=== PATIENT | female | born 1980 | race Caucasian/White ===

== ENCOUNTER 2020-04-18 10:59 | Emergency (ER) | payer OTHER ==
[2020-04-18 11:18] VITALS: BP 131/79
[2020-04-18] MEDS ORDERED: DEXAMETHASONE 10 MG/ML VIAL PO STA (11:33)
[2020-04-18] MEDS ORDERED: CHERRY SYRUP 10 ML UDC PO ONE (11:33)
--- NOTE | 2020-04-18 11:36 | ED Physician Documentation ---
PD HPI HEENT - Stated complaint Stated Complaint: EAR PX/RINGING - Chief complaint Chief Complaint: Heent - History obtained from History obtained from: Patient - History of Present Illness Timing - onset: How many days ago (2) Timing - duration: Days (2) Timing - details: Gradual onset, Still present Location: Left ear Improves: Medication Associated symptoms: Congestion, Rhinorrhea, Headache. No: Cough Similar symptoms before: Diagnosis (OM) Recently seen: Not recently seen - Additional information Additional information: 39-year-old female with a prior history of otitis media has developed signs and symptoms again of otitis. She states that she has had some muffled hearing and pain in the left ear as well as nasal congestion that is been present for several days she has not developed a cough or fever. She does have some drainage down the back of her throat. Review of Systems Constitutional: denies: Fever Eyes: denies: Decreased vision Ears: reports: Ear pain, Tinnitus/ringing. denies: Drainage/discharge Nose: reports: Rhinorrhea / runny nose, Congestion Throat: denies: Sore throat Cardiac: denies: Chest pain / pressure, Palpitations Respiratory: denies: Dyspnea, Cough GI: denies: Vomiting PD PAST MEDICAL HISTORY - Past Medical History Past Medical History: No - Past Surgical History Past Surgical History: No - Present Medications Home Medications: Ambulatory Orders Medication Instructions Recorded Confirmed Amox/Clav 875/125 [Augmentin] 1 each PO Q12H #20 tablet 04/18/20 - Allergies Allergies/Adverse Reactions: Allergies Allergy/AdvReac Type Severity Reaction Status Date / Time morphine Allergy Hives Verified 04/18/20 11:18 - Social History Does the pt smoke?: No Smoking Status: Current every day smoker Does the pt drink ETOH?: No Does the pt have substance abuse?: No - Immunizations Immunizations are current?: Yes PD ED PE NORMAL - Vitals Vital signs reviewed: Yes (hypertensive) - General General: Alert and oriented X 3, No acute distress, Well developed/nourished - HEENT HEENT: Atraumatic, PERRL, EOMI, Other (There is marked inflamation to the left TM with distortion of the landmarks. The right is only flush and the pharynx is with 2+ tonsils smooth. 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 She is administered dexamethasone 10 mg orally we will place her on some Augmentin and expect her to improve rapidly. Departure - Departure Disposition: 01 Home, Self Care Clinical Impression: Otitis media Qualifiers: Otitis media type: suppurative Chronicity: acute Laterality: left Recurrence: not specified as recurrent Spontaneous tympanic membrane rupture: without spontaneous rupture Qualified Code(s): H66.002 - Acute suppurative otitis media without spontaneous rupture of ear drum, left ear Condition: Stable Instructions: ED Otitis Media Acute Adult Follow-Up: Janette Daniels PA [Primary Care Provider] - Prescriptions: Amox/Clav 875/125 [Augmentin] 1 each PO Q12H #20 tablet
== END 2020-04-18 11:59 | disposition home or self-care (01) ==
LOC: ED 10:59
DX: H66.002 Acute suppurative otitis media without spontaneous rupture of ear drum, left ear (principal); F17.200 Nicotine dependence, unspecified, uncomplicated
CPT/HCPCS: 99282; 99284; A9270

== ENCOUNTER 2020-08-02 04:14 | Inpatient (IN) | payer OTHER ==
--- OUTSIDE RECORDS SUMMARY | 2020-08-02 04:29 | EXTERNAL MEDICAL SUMMARY RPT | Continuity of Care Document ---
:1980 Demographics Phone Unavailable Preferred Language Unknown Marital Status Unknown Sabianist Affiliation Unknown Race Unknown Ethnic Group Unknown Author Organization [place] Address [address] [phone] Phone Social History date description facility [phone]
--- NOTE | 2020-08-02 04:41 | ED Physician Documentation ---
PD HPI DYSPNEA - Stated complaint Stated Complaint: SOA - Chief complaint Chief Complaint: Resp - History obtained from History obtained from: Patient - History of Present Illness Timing - onset: Enter time (829), Today Timing - onset during: Rest Timing - duration: Hours Timing - details: Gradual onset, Still present Inciting event(s): Other (stress at home) Improved by: Rest Worsened by: Exertion, Coughing Associated symptoms: Chest pain / discomfort, Anxiety. No: Fever, Cough, Hemoptysis, Wheezing, Palpitations, Diaphoresis, Bilateral edema, Unilateral edema Similar symptoms before: Diagnosis (catamenial pneumothorax) Recently seen: Not recently seen - Additional information Additional information: 39-year-old female with a history of catamnial pneumothorax Has began to develop some itching in the right hemithorax several days ago and she is now recognizes his prodromal symptoms to a pneumothorax. She has subsequently developed pain which is progressively worsened and she is having shortness of breath. As the day is gone on she has developed worsening shortness of breath and she has come into the emergency department this morning recognizing this is likely another pneumothorax. She has had one pneumothorax treated with chest tube 10 years ago and she has subsequently had symptoms periodically and had repeat chest x-rays but never developed another pneumothorax. 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 - Allergies Allergies/Adverse Reactions: Allergies Allergy/AdvReac Type Severity Reaction Status Date / Time morphine Allergy Hives Verified 08/02/20 04:25 - Social History Does the pt smoke?: No Smoking Status: Never smoker Does the pt drink ETOH?: No Does the pt have substance abuse?: No - Immunizations Immunizations are current?: Yes PD ED PE NORMAL - Vitals Vital signs reviewed: Yes (tachy and hypertensive ) - General General: Alert and oriented X 3, No acute distress, Well developed/nourished - HEENT HEENT: Atraumatic, PERRL, EOMI - Neck Neck: Supple, no meningeal sign, No bony TTP - Cardiac Cardiac: No murmur, Other (tachy ) - Respiratory Respiratory: No respiratory distress, Other (reduced lung sounds on right side. 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, No motor deficit, No sensory deficit, Normal speech Eye Opening: Spontaneous Motor: Obeys Commands Verbal: Oriented GCS Score: 15 - Psych Psych: Normal mood, Normal affect Results - Vitals Vitals: Vital Signs - 24 hr 08/02/20 08/02/20 08/02/20 04:19 04:25 06:06 Temperature 36.4 C L 36.4 C L Heart Rate 115 H 115 H 121 H Respiratory 20 20 20 Rate Blood Pressure 146/87 H 146/87 H 164/98 H O2 Saturation 95 95 92 Oxygen O2 Source Room air - Labs Labs: Laboratory Tests 08/02/20 08/02/20 08/02/20 04:48 04:48 04:51 WBC 12.7 H RBC 4.99 Hgb 14.9 Hct 44.6 MCV 89.4 MCH 29.9 MCHC 33.4 RDW 13.8 Plt Count 335 MPV 9.5 Neut # (Auto) 9.9 H Lymph # (Auto) 1.9 [place] # (Auto) 0.7 Eos # (Auto) 0.1 Baso # (Auto) 0.0 Absolute Nucleated RBC 0.00 Nucleated RBC % 0.0 Sodium 135 Potassium 3.8 Chloride 99 L Carbon Dioxide 24 Anion Gap 12.0 BUN 11 Creatinine 0.8 Estimated GFR (MDRD) 79 L Glucose 163 H Calcium 9.6 Total Bilirubin 0.8 AST 18 ALT 22 Alkaline Phosphatase 64 Total Protein 7.8 Albumin 4.4 Globulin 3.4 Albumin/Globulin Ratio 1.3 Lipase 31 Urine Color YELLOW Urine Clarity CLEAR Urine pH 5.0 Ur Specific [place] >=1.030 H Urine Protein NEGATIVE Urine Glucose (UA) NEGATIVE Urine Ketones 15 H Urine Occult Blood MODERATE H Urine Nitrite NEGATIVE Urine Bilirubin NEGATIVE Urine Urobilinogen 0.2 (NORMAL) Ur Leukocyte Esterase NEGATIVE Urine RBC 6-10 H Urine WBC 0-3 Ur Squamous Epith Cells MANY Squamous H Urine Bacteria Rare Ur Microscopic Review INDICATED Urine Culture Comments NOT INDICATED Urine HCG, Qual 08/02/20 04:51 WBC RBC Hgb Hct MCV MCH MCHC RDW Plt Count MPV Neut # (Auto) Lymph # (Auto) [place] # (Auto) Eos # (Auto) Baso # (Auto) Absolute Nucleated RBC Nucleated RBC % Sodium Potassium Chloride Carbon Dioxide Anion Gap BUN Creatinine Estimated GFR (MDRD) Glucose Calcium Total Bilirubin AST ALT Alkaline Phosphatase Total Protein Albumin Globulin Albumin/Globulin Ratio Lipase Urine Color Urine Clarity Urine pH Ur Specific [place] Urine Protein Urine Glucose (UA) Urine Ketones Urine Occult Blood Urine Nitrite Urine Bilirubin Urine Urobilinogen Ur Leukocyte Esterase Urine RBC Urine WBC Ur Squamous Epith Cells Urine Bacteria Ur Microscopic Review Urine Culture Comments Urine HCG, Qual NEGATIVE - Rads (name of study) chest Radiology: Prelim report reviewed (Impression: 1. Moderate to large right-sided pneumothorax. 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 The surgeon Dr. Rose Esqueda is consulted in the case comes to the emergency department and places a chest tube with resolution of the pneumothorax. The patient is then admitted to the hospital under her care. Departure - Departure Disposition: [facility] DC/Xfer Clinical Impression: Pneumothorax on right Condition: Stable
[2020-08-02 04:54] LABS: BASOPHILS % (AUTO) 0.3 %; EOSINOPHILS # (AUTO) 0.1 10^3/uL (0.0-0.7); EOSINOPHILS % (AUTO) 0.5 %; HCT - HEMATOCRIT 44.6 % (37.0-47.0); HGB - HEMOGLOBIN 14.9 g/dL (12.0-16.0); LYMPHOCYTES # (AUTO) 1.9 10^3/uL (1.5-3.5); LYMPHOCYTES % (AUTO) 15.1 %; MEAN CORPUSCULAR HEMOGLOBIN 29.9 pg (27.0-31.0); MEAN CORPUSCULAR HGB CONC 33.4 g/dL (32.0-36.0); MEAN CORPUSCULAR VOLUME 89.4 fL (81.0-99.0); MEAN PLATELET VOLUME 9.5 fL (7.9-10.8); MONOCYTES # (AUTO) 0.7 10^3/uL (0.0-1.0); MONOCYTES % (AUTO) 5.8 %; NEUTROPHILS # (AUTO) 9.9 10^3/uL (1.5-6.6); PLT - PLATELET COUNT 335 10^3/uL (130-450); RED BLOOD COUNT 4.99 10^6/uL (4.20-5.40); RED CELL DISTRIBUTION WIDTH 13.8 % (12.0-15.0); WHITE BLOOD COUNT 12.7 x10^3/uL (4.8-10.8)
[2020-08-02 05:05] LABS: ALBUMIN 4.4 g/dL (3.2-5.5); ALBUMIN/GLOBULIN RATIO 1.3 (1.0-2.2); BILIRUBIN,TOTAL 0.8 mg/dL (0.2-1.0); CALCIUM 9.6 mg/dL (8.5-10.3); CREATININE 0.8 mg/dL (0.4-1.0); POTASSIUM 3.8 mmol/L (3.5-5.0); TOTAL PROTEIN 7.8 g/dL (6.7-8.2)
[2020-08-02 05:07] LABS: BILIRUBIN,URINE NEGATIVE (NEGATIVE); GLUCOSE, URINE (UA) NEGATIVE (NEGATIVE); KETONES,URINE (UA) 15 mg/dL (NEGATIVE); LEUKOCYTE ESTERASE, URINE NEGATIVE (NEGATIVE); NITRITE,URINE NEGATIVE (NEGATIVE); OCCULT BLOOD,URINE MODERATE (NEGATIVE); PROTEIN,URINE NEGATIVE (NEGATIVE); UROBILINOGEN,URINE 0.2 (NORMAL) E.U./dL (NORMAL)
[2020-08-02 05:08] LABS: HCG UR QUAL NEGATIVE
[2020-08-02 05:22] LABS: BACTERIA,URINE Rare /HPF (None Seen); CLARITY,URINE CLEAR (CLEAR); SQUAMOUS EPITHELIAL CELL,UR MANY Squamous (<= Few); WBC,URINE 0-3 /HPF (0-5)
[2020-08-02] MEDS ORDERED: MIDAZOLAM 2 MG/2 ML VIAL IVP STA (05:29)
[2020-08-02] MEDS ORDERED: HYDROmorphone 1 MG/ML CARPUJECT IVP STA (05:30)
[2020-08-02] MEDS ORDERED: ONDANSETRON 4 MG/2 ML VIAL IVP STA (05:30)
[2020-08-02] MEDS ORDERED: LIDOCAINE 1% 2 ML VIAL SUBQ STA (05:48)
[2020-08-02] MEDS ORDERED: BUFFERED LIDOCAINE 10 ML SYRINGE SUBQ STA (06:18)
--- NOTE | 2020-08-02 06:20 | SURGERY HX AND PHYSICAL(T) ---
Surgical History & Physical - Chief Complaint/HPI Chief Complaint: Shortness of breath History of Present Illness: Very pleasant 39-year-old lady who moved here in January from [place]. She reports she has a history of significant endometriosis with catamenial pneumothorax on the right approximately 10 years ago.She said she started having some itching in the right chest Sunday evening or early Sunday morning. This progressed to shortness of breath. She was hoping it would just go away as she has had intermittent symptoms over the last 10 years but it generally resolves. She went ahead and went to bed though she was short of breath but over the night became increasingly more uncomfortable and presented to the emergency room this morning. She was seen by Dr. Samaniego in the ED and found to have a significant size right pneumothorax.During the prior episode. She reports the chest tube was placed and she was in the hospital for about 2 days. It resolved without further issue.Over the last 10 years she reports 2 or 3 perhaps 4 episodes of similar symptoms but not nearly as severe. The itching she says is common during these episodes but generally they do not proceed to pneumothorax.Other than this, she reports she feels well. She has 3 healthy daughters age 11-19 she is anxious to get home as soon as she can. 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 Is Patient ?: No Urinary: None Musculoskeletal: None Blood Disorders: None Psychiatric: None General: Other (Tubal ligation) Smoking Status: Never smoker Does the pt drink ETOH?: No Does the pt have substance abuse?: No - Home Meds and Allergies Allergies/Adverse Reactions: Allergies Allergy/AdvReac Type Severity Reaction Status Date / Time morphine Allergy Hives Verified 08/02/20 04:25 - Vital Signs Heart Rate: 121 Blood Pressure: 164/98 Temperature: 36.4 C Respiratory Rate: 20 O2 Saturation: 92 Weight (kg): 103.419 kg Height: 1.68 m - Physical Exam General Appearance: positive: Mild distress Eyes Bilatera: positive: Normal inspection, PERRL, EOMI ENT: positive: ENT inspection nml Neck: positive: Nml inspection, No JVD, Trachea midline (Decreased breath sounds on the right. Postural splinting as noted) Cardiovascular: positive: No murmur, Tachycardia Peripheral Pulses: positive: 1+ Abdomen: positive: Non-tender Back: positive: Nml inspection Skin: positive: Color nml Extremities: positive: Non-tender Neurologic/Psychiatric: positive: Oriented x3, CN's nml (2-12) - Patient Review Patient Review: Problems were reviewed with the patient during this visit. Medications were reviewed with the patient during this visit. Allergies were re viewed this patient during this visit. Pertinent Tests Reviewed: All pertitent test for this patient were reviewed. - Assessment & Plan Assessment and Plan: Right chest moderate size, symptomatic pneumothorax in the setting of a healthy 39-year-old lady with no other medical problems. I have recommended we urgently place a right thoracostomy tube and reexpand this lung. The patient will be admitted to the Medr unit for thoracostomy tube management and pain control. She has expressed verbal and written consent to the procedure.
[2020-08-02] MEDS ORDERED: ONDANSETRON 4 MG/2 ML VIAL IVP PRN (06:26)
[2020-08-02] MEDS ORDERED: SODIUM CHLORIDE FLUSH 0.9% 10 ML SYRINGE IVP PRN (06:26)
[2020-08-02] MEDS ORDERED: ceFAZolin 2 GM/50 ML 2 GM/50 ML BAG IV SCH (06:30)
--- OUTSIDE RECORDS SUMMARY | 2020-08-02 06:53 | EXTERNAL MEDICAL SUMMARY RPT | Continuity of Care Document ---
:1980 Demographics Phone Unavailable Preferred Language Unknown Marital Status Unknown Roman Catholic Affiliation Unknown Race Unknown Ethnic Group Unknown Author Organization [place] Address [address] [place] [address] Phone Social History date description facility [phone]
[2020-08-02] MEDS ORDERED: SODIUM CHLORIDE 0.9% 1,000 ML IV SCH (07:00)
[2020-08-02] MEDS: PANTOPRAZOLE 40 MG TABLET PO SCH (07:08)
[2020-08-02] MEDS: KETOROLAC 30 MG/ML VIAL IVP SCH ×3 (07:08→18:58)
[2020-08-02] MEDS: SODIUM CHLORIDE FLUSH 0.9% 10 ML SYRINGE IVP SCH ×2 (07:08→18:58)
[2020-08-02 07:38] LABS: B. PARAPERTUSSIS- RESP PCR PAN NOT DETECTED; B. PERTUSSIS- RESP PCR PANEL NOT DETECTED; C. PNEUMONIAE- RESP PCR PANEL NOT DETECTED; CORONAVIRUS 229E-RESP PCR NOT DETECTED; CORONAVIRUS HKU1-RESP PCR NOT DETECTED; CORONAVIRUS NL63-RESP PCR NOT DETECTED; CORONAVIRUS OC43-RESP PCR NOT DETECTED; HUMAN METAPNEUMOVIRUS NOT DETECTED; INFLUENZA A- RESP PCR PANEL NOT DETECTED; INFLUENZA B - RESP PCR PANEL NOT DETECTED; M. PNEUMONIAE- RESP PCR PANEL NOT DETECTED; PARAINFLUENZA VIRUS 1 NOT DETECTED; PARAINFLUENZA VIRUS 2 NOT DETECTED; PARAINFLUENZA VIRUS 3 NOT DETECTED; PARAINFLUENZA VIRUS 4 NOT DETECTED; RHINOVIRUS/ENTEROVIRUS NOT DETECTED; RSV- RESP PCR PANEL NOT DETECTED; SARS-CoV-2 -RESP PCR PANEL NOT DETECTED
--- NOTE | 2020-08-02 08:21 | XRAY Report ---
PROCEDURE: Chest 1 View X-Ray INDICATIONS: Chest pain, shortness of breath since yesterday, history of collapsed lung. TECHNIQUE: One view of the chest was acquired. COMPARISON: None. FINDINGS: Surgical changes and devices: None. Lungs and pleura: No pleural effusions but there is a moderately large right-sided pneumothorax. Leticia ngs are clear. Mediastinum: Mediastinal contours appear normal. Heart size is normal. Bones and chest wall: No suspicious bony lesions. Overlying soft tissues appear unremarkable. IMPRESSION: Moderately large right mid and lower hemithorax pneumothorax without current significant mediastinal shift from right to left. The emergency room was immediately notified of this finding 08/02/2020, 5:00 a.m. Reviewed by: Kareem Diego MD on 08/02/2020 8:19 AM PDT Approved by: Kareem Diego MD on 08/02/2020 8:19 AM PDT Station ID: [id number]
--- NOTE | 2020-08-02 08:26 | XRAY Report ---
PROCEDURE: Chest 1 View X-Ray INDICATIONS: chest tube placement TECHNIQUE: One view of the chest was acquired. COMPARISON: Earlier single view chest same day, showing a moderately large mid and lower right hemit horax pneumothorax. FINDINGS: Surgical changes and devices: Chest tube placed from lateral lower chest approach. Lungs and pleura: No pleural effusions but there is a slight remaining right apical pneumothorax. L ungs are clear considering reduced inspiration. Mediastinum: Mediastinal contours appear normal. Heart size is normal. Bones and chest wall: No suspicious bony lesions. Overlying soft tissues appear unremarkable. IMPRESSION: Almost complete resolution of a moderately large right spontaneous pneumothorax with reference to the plain film earlier today. Right lower chest lateral body wall subcutaneous emphysema. Chest tube ext ends to overlie the lower right lung. Reviewed by: Kareem Diego MD on 08/02/2020 8:25 AM PDT Approved by: Kareem Diego MD on 08/02/2020 8:25 AM PDT Station ID: [id number]
[2020-08-02] MEDS: ENOXAPARIN 40 MG/0.4 ML SYRINGE SUBQ SCH (08:52)
[2020-08-02] MEDS: ACETAMINOPHEN 325 MG TABLET PO PRN ×2 (10:50→15:32)
[2020-08-02] MEDS: NICOTINE 14 MG PATCH TOP SCH (11:32)
[2020-08-02] MEDS: methocarbamoL 500 MG TABLET PO PRN (18:58)
[2020-08-03] MEDS: KETOROLAC 30 MG/ML VIAL IVP SCH ×2 (00:45→06:16)
[2020-08-03] MEDS: SODIUM CHLORIDE FLUSH 0.9% 10 ML SYRINGE IVP SCH ×4 (00:46→23:48)
[2020-08-03] MEDS: methocarbamoL 500 MG TABLET PO PRN ×2 (03:25→23:56)
[2020-08-03] MEDS: PANTOPRAZOLE 40 MG TABLET PO SCH ×2 (06:16→06:22)
[2020-08-03] MEDS: NICOTINE 14 MG PATCH TOP SCH (09:25)
[2020-08-03] MEDS: ENOXAPARIN 40 MG/0.4 ML SYRINGE SUBQ SCH (09:25)
[2020-08-03] MEDS: polyethylene glycoL 3350 17 GM PACKET PO SCH (09:25)
--- NOTE | 2020-08-03 09:36 | XRAY Report ---
PROCEDURE: Chest 2 View X-Ray INDICATIONS: Right pneumothorax TECHNIQUE: 2 view(s) of the chest. COMPARISON: None. FINDINGS: Surgical changes and devices: Chest tube is present overlying the medial aspect of the right lower lo be. Lungs and pleura: There is questionable trace residual pneumothorax at the right costophrenic sulcus. Mediastinum: Mediastinal contours are normal. Heart size is normal. Bones and chest wall: No suspicious bony abnormalities. Soft tissues demonstrate emphysematous odonnell ge along the right chest wall secondary to chest tube insertion. IMPRESSION: Right chest tube as above. Questionable trace residual pneumothorax at the costophrenic sulcus. Reviewed by: Danielle Murillo MD on 08/03/2020 8:35 AM SILVIA Approved by: Danielle Murillo MD on 08/03/2020 8:35 AM SILVIA Station ID: [id number]
--- NOTE | 2020-08-03 13:12 | PROVIDER PROGRESS NOTE ---
Subjective - General Admit Date: 08/02/20 Procedure Date: 08/02/20 Post Op Days: 1 Procedure Performed: Right thoracostomy tube placement - Review of Systems Pulmonary: positive: Other (Mild pain in her right chest but controlled with Toradol and tylenol. Minimal output from the chest tube. No air leak) Cardiovascular: positive: No symptoms Objective - Patient Data Vital Signs: Vital Signs x48h Temp Pulse Resp BP Pulse Ox 08/03/20 08:21 36.5 C 74 16 125/66 93 Weight: Weight 08/01/20 08/02/20 08/03/20 23:59 23:59 23:59 Weight (kg) 100.5 kg Intake & Output: Intake and Output Totals x24h 08/01/20 08/02/20 08/03/20 23:59 23:59 23:59 Intake Total 2347 1200 Output Total 0 Balance 2347 1200 - Lab Results Lab Results: 08/02/20 04:48 08/02/20 04:48 - Current Medications Current Medications: Current Medications Generic Name Dose Route Start Last Admin Trade Name Freq PRN Reason Stop Dose Admin Acetaminophen 650 mg 08/02/20 06:26 08/02/20 15:32 Acetaminophen 325 Mg Tablet PO 650 mg Q4HR PRN Administration PAIN Enoxaparin Sodium 40 mg 08/02/20 09:00 08/03/20 09:25 Enoxaparin 40 Mg/0.4 Ml Syringe SUBQ 40 mg DAILY ZAY Administration Sodium Chloride 1,000 mls @ 30 mls/hr 08/02/20 07:00 08/02/20 07:08 Normal Saline 0.9% IV 30 mls/hr .[id number] ZAY Administration Ketorolac Tromethamine 30 mg 08/02/20 07:00 08/03/20 06:16 Ketorolac 30 Mg/Ml Vial IVP 08/07/20 06:59 30 mg Q6H ZAY Administration Methocarbamol 500 mg 08/02/20 06:34 08/03/20 03:25 Methocarbamol 500 Mg Tablet PO 500 mg Q6H PRN Administration PAIN Nicotine 1 patch 08/02/20 11:00 08/03/20 09:25 Nicotine 14 Mg Patch TOP 1 patch DAILY ZAY Administration Pantoprazole Sodium 40 mg 08/02/20 07:00 08/03/20 06:22 Pantoprazole 40 Mg Tablet PO Not Given QDAC [facility] Polyethylene Glycol 17 gm 08/03/20 09:00 08/03/20 09:25 Polyethylene Glycol 3350 17 Gm Packet PO Not Given DAILY [facility] Sodium Chloride 10 ml 08/02/20 09:00 08/03/20 06:16 Sodium Chloride Flush 0.9% 10 Ml Syringe IVP 10 ml 0100,0900,1700 [facility] Administration Impression/Plan - Problem List Problem List: CXR show near complete expansion of the right lung with possible trace pneumothorax at the costo phrenic angle. 1. Place chest tube to water seal and repeat the cxr in the AM. Plan to remove the tube and discharge as long as there is no deterioration over night. 2. Hep lock IV. 3. Discontinue Toradol and change to po Ibuprofen 4. Continue Acetaminophen
[2020-08-03] MEDS: IBUPROFEN 600 MG TABLET PO SCH ×3 (13:30→23:45)
[2020-08-03] MEDS ORDERED: SENNA 8.6 MG TABLET PO PRN (19:28)
[2020-08-03] MEDS ORDERED: DOCUSATE SODIUM 250 MG CAPSULE PO PRN (19:28)
[2020-08-04] MEDS: IBUPROFEN 600 MG TABLET PO SCH ×2 (05:47→12:16)
[2020-08-04] MEDS: PANTOPRAZOLE 40 MG TABLET PO SCH (05:48)
[2020-08-04] MEDS: NICOTINE 14 MG PATCH TOP SCH (08:38)
[2020-08-04] MEDS: methocarbamoL 500 MG TABLET PO PRN (08:38)
[2020-08-04] MEDS: polyethylene glycoL 3350 17 GM PACKET PO SCH (08:39)
[2020-08-04] MEDS: SODIUM CHLORIDE FLUSH 0.9% 10 ML SYRINGE IVP SCH (08:39)
[2020-08-04] MEDS: ENOXAPARIN 40 MG/0.4 ML SYRINGE SUBQ SCH (08:41)
[2020-08-04 08:56] VITALS: BP 131/63
--- NOTE | 2020-08-04 09:35 | XRAY Report ---
PROCEDURE: Chest 2 View X-Ray INDICATIONS: Right pneumothorax TECHNIQUE: 2 view(s) of the chest. COMPARISON: None. FINDINGS: Surgical changes and devices: A right-sided chest tube is in place. There is subcutaneous emphysema a round the chest tube insertion site in the right lower chest wall. No pneumothorax is identified the right lung. No focal consolidation or mass. . Lungs and pleura: No pleural effusions or pneumothorax. Lungs are clear. Mediastinum: Mediastinal contours are normal. Heart size is normal. Bones and chest wall: No suspicious bony abnormalities. Soft tissues appear unremarkable. IMPRESSION: 1. Right-sided chest tube appears well-positioned. 2. No residual pneumothorax. 3. No acute abnormality of the chest. Reviewed by: Brian Burrows on 08/04/2020 9:33 AM SHAI Approved by: Brian Burrows on 08/04/2020 9:33 AM PDT Station ID: [id number]
--- NOTE | 2020-08-04 12:13 | Discharge Plan ---
Discharge Plan Problem Reviewed?: Yes Disposition: Home, Self Care Condition: Stable Prescriptions: Acetaminophen [Tylenol] 650 mg PO Q4HR PRN #60 tablet PRN Reason: Pain Ibuprofen [Motrin] 600 mg PO Q6HR PRN #60 tablet PRN Reason: Pain Docusate Sodium 250Mg Capsule [Colace 250Mg Capsule] 250 mg PO DAILY PRN #30 tab PRN Reason: Constipation methocarbamoL [Robaxin] 500 mg PO Q6H PRN #30 tablet PRN Reason: Spasms Diet: Regular Activity Restrictions: 15 pound lift lizarraga 2 wks Shower Restrictions: No Driving Restrictions: No No Smoking: If you smoke, Please STOP! Call for help. Follow-up with: Yelena Esqueda MD [Provider Admit Priv/Credential] -
--- NOTE | 2020-08-04 12:19 | DISCHARGE SUMMARY ---
"Discharge Summary Admit Date: 08/02/20 Discharge Date: 08/04/20 Discharging Provider: Yin Primary Care Provider: [facility] Code Status: Attempt Resuscitation Condition at Discharge: Stable Discharge Disposition: 01 Home, Self Care - DIAGNOSES Admission Diagnoses: Catamenial Pneumothorax Discharge Diagnoses with Status of Each Condition: Resolved - HPI History of Present Illness: Very pleasant 39-year-old lady who moved here in January from [place]. She reports she has a history of significant endometriosis with catamenial pneumothorax on the right approximately 10 years ago.She said she started having some itching in the right chest Sunday evening or early Sunday morning. This progressed to shortness of breath. She was hoping it would just go away as she has had intermittent symptoms over the last 10 years but it generally resolves. She went ahead and went to bed though she was short of breath but over the night became increasingly more uncomfortable and presented to the emergency room this morning. She was seen by Dr. Samaniego in the ED and found to have a significant size right pneumothorax.During the prior episode. She reports the chest tube was placed and she was in the hospital for about 2 days. It resolved without further issue.Over the last 10 years she reports 2 or 3 perhaps 4 episodes of similar symptoms but not nearly as severe. The itching she says is common during these episodes but generally they do not proceed to pneumothorax.Other than this, she reports she feels well. She has 3 healthy daughters age 11-19 she is anxious to get home as soon as she can. - CONSULTS | PROCEDURES Consultations: None Procedures: Right thoracostomy tube placement - HOSPITAL COURSE Hospital Course: Ducle was admitted for chest tube management. On the second hospital day, CXR revealed the lung to be fully expanded. The tube was placed to water seal and she began ambulating. On the second post operative day, the lung remained fully inflated. The tube was removed and the patient discharged to her home. She will need to observe a 15 pound lifting restriction for 2 weeks to allow for complete healing. She will follow up with me in 2 weeks. - ALLERGIES Allergies/Adverse Reactions: Allergies Allergy/AdvReac Type Severity Reaction Status Date / Time morphine Allergy Hives Verified 08/02/20 04:25 - MEDICATIONS Home Medications: Ambulatory Orders Medication Instructions Recorded Confirmed Acetaminophen [Tylenol] 650 mg PO Q4HR PRN #60 tablet 08/04/20 Docusate Sodium 250Mg Capsule 250 mg PO DAILY PRN #30 tab 08/04/20 [Colace 250Mg Capsule] Ibuprofen [Motrin] 600 mg PO Q6HR PRN #60 tablet 08/04/20 methocarbamoL [Robaxin] 500 mg PO Q6H PRN #30 tablet 08/04/20 - PHYSICAL EXAM AT DISCHARGE General Appearance: positive: No acute distress, Alert Eyes Bilateral: positive: Normal inspection, PERRL, EOMI ENT: positive: ENT inspection nml, Pharynx nml, No signs of dehydration Neck: positive: Nml inspection, No JVD. negative: Lymphadenopathy (R), Lymphadenopathy (L) Respiratory: positive: No respiratory distress, Breath sounds nml Cardiovascular: positive: Regular rate & rhythm, No murmur Peripheral Pulses: positive: 1+ Abdomen: positive: No distention Back: positive: Nml inspection Skin: positive: Color nml Extremities: positive: Non-tender, Full ROM Neurologic/Psychiatric: positive: Oriented x3 - LABS Result Diagrams: 08/02/20 04:48 08/02/20 04:48 - DIAGNOSTIC IMAGING Diagnostic Imaging Results: Final report reviewed - QUALITY (Female Hip Fx Only) Was patient sent home on osteoporosis medication?: No - FOLLOW UP Follow Up: [address] Esqueda - TIME SPENT Time Spent in Discharge (Minutes): 20"
== END 2020-08-04 14:00 | disposition home or self-care (01) | DRG 201 ==
LOC: ED 04:14 → MS2 06:26
PROVIDERS: ADMIT Surgery; ATTEND Surgery
PROC: 0W9930Z Drainage of Right Pleural Cavity with Drainage Device, Percutaneous Approach (ICD-10-PCS; principal; 2020-08-02)
DX: J93.83 Other pneumothorax (principal); Z87.42 Personal history of other diseases of the female genital tract
CPT/HCPCS: 0202U; 36415; 71045; 71046; 80053; 81001; 81025; 83690; 85025; 96374; 96375; 99284; 99285; 99406; A9270; J0690; J1170; J1650; 81003; 87086

== ENCOUNTER 2021-04-24 14:45 | Outpatient (CLI) | payer OTHER | END 2021-04-24 23:59 | disposition home or self-care (01) | LOC: LAB.N 14:45 | PROVIDERS: ATTEND Nurse Practitioner | DX: U07.1 COVID-19 (principal) | CPT/HCPCS: 87070; 87275; 87276 ==

== ENCOUNTER 2023-01-25 21:32 | Emergency (ER) | payer OTHER ==
[2023-01-25 21:49] VITALS: BP 173/93; O2SAT 95
--- NOTE | 2023-01-25 22:26 | ED Physician Documentation ---
History of Present Illness - Stated complaint Stated Complaint: R FINGER LAC - Chief complaint Chief Complaint: Ext Problem - History obtained from History obtained from: Patient - Additonal information Additional information: 42-year-old woman with tetanus update (2019) presents status post laceration of right first finger at the distal aspect on a can today. Denies other injury. 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 - Past Surgical History Past Surgical History: Yes General: Other /DIRECTOR OF LABOR RELATIONS: Tubal ligation Cardiovascular: Other - Present Medications Home Medications: Ambulatory Orders Medication Instructions Recorded Confirmed No Known Home Medications 01/25/23 01/25/23 - Allergies Allergies/Adverse Reactions: Allergies Allergy/AdvReac Type Severity Reaction Status Date / Time morphine Allergy Hives Verified 01/25/23 21:41 - Social History Does the pt smoke?: No Smoking Status: Never smoker Does the pt drink ETOH?: No Does the pt have substance abuse?: No - Immunizations Immunizations are current?: Yes PD ED PE NORMAL - Vitals Vital signs reviewed: Yes - General General: Alert and oriented X 3, No acute distress, Well developed/nourished - Derm Derm: Normal color, Warm and dry, Other (0.5 mm Superficial laceration to distal right first finger, well approximated without foreign body) - Extremities Extremities: Other (Normal capillary refill, sensation, movement of right first finger. No tendon involvement.) Results - Vitals Vitals: Vital Signs - 24 hr 01/25/23 21:34 Temperature 36.6 C Heart Rate 103 H Respiratory 17 Rate Blood Pressure 173/93 H O2 Saturation 95 Oxygen O2 Source Room air Procedures - Laceration (location) Finger right Palmar Length in cm: 0.5 Wound type: Curved Neurovascular status: Sensory intact, Motor intact, Vascular intact Tendon involvement: Tendon intact Wound preparation: Irrigated copiously NS, Wound explored, To the base Skin layer closure: Dermabond Other: Patient tolerated well, No complications, Tetanus UTD PD Medical Decision Making - ED course ED course: 42-year-old woman presents with laceration of right first finger. Repaired with Dermabond after cleaning with water. Return precautions given. Departure - Departure Disposition: 01 Home, Self Care Clinical Impression: Laceration of finger Condition: Good Instructions: ED Laceration Ext Skin Glue Comments: You were seen in the emergency department for Laceration of the finger and got skin glue. Please keep the area clean and dry for 48 hours. Please return to the emergency department if you have any new or worsening symptoms or other concerns. Forms: PCP List
== END 2023-01-25 22:46 | disposition home or self-care (01) ==
LOC: ED 21:32
DX: S61.011A Laceration without foreign body of right thumb without damage to nail, initial encounter (principal); W26.8XXA Contact with other sharp object(s), not elsewhere classified, initial encounter; Y93.89 Activity, other specified
CPT/HCPCS: 12001; 99281